=== PATIENT | female | born 1960 | race Caucasian/White ===

== ENCOUNTER 2016-11-17 05:55 | Day surgery (SDC) | payer BC ==
[2016-11-16 10:27] VITALS: BMI 35.6
[~2016-11-17] VITALS: Ht 167.6 cm; Wt 104.0 kg
[~2016-11-17 05:55] MED LIST: INSULIN SC; METFORMIN PO
[2016-11-17] MEDS ORDERED: DICLOFENAC 0.1% 2.5 ML OPH OPER SCH (06:30)
[2016-11-17] MEDS ORDERED: TROPICAMIDE 1% 2 ML OPH OPER SCH (06:30)
[2016-11-17] MEDS ORDERED: CIPROFLOXACIN 0.3% 2.5 ML OPH OPER SCH (06:30)
[2016-11-17] MEDS ORDERED: CYCLOPENTOLATE/PHENYLEPH 2 ML OPH OPER SCH (06:30)
[2016-11-17] MEDS ORDERED: LIDOCAINE 4% (MPF) 5 ML INJ ONE (06:32)
[2016-11-17] MEDS ORDERED: CARBACHOL 0.01% 1.5 ML OPH INJ ONE (06:32)
[2016-11-17] MEDS ORDERED: DEXAMETHASONE 4 MG/ML 1 ML INJ ONE (06:32)
[2016-11-17] MEDS ORDERED: CEFAZOLIN 1 GM INJ ONE (06:32)
[2016-11-17] MEDS ORDERED: GENTAMICIN 80 MG INJ ONE (06:32)
[2016-11-17] MEDS ORDERED: HYALURONATE/CHONDROITIN 1ML OPH INJ ONE (06:32)
[2016-11-17] MEDS ORDERED: EPINEPHrine 1 MG INJ ONE (06:32)
[2016-11-17] MEDS ORDERED: LANT3I SC (07:10)
[2016-11-17] MEDS ORDERED: METF1000 PO (07:10)
[2016-11-17] MEDS ORDERED: INSU100I17 SQ (07:11)
[2016-11-17] MEDS ORDERED: DEXAMETHASONE 4 MG/ML 1 ML INJ INJ ONE (08:22)
[2016-11-17] MEDS ORDERED: CEFAZOLIN 1 GM INJ INJ ONE (08:22)
[2016-11-17] MEDS ORDERED: HYALURONATE/CHONDROITIN 1ML OPH INJ IO ONE (08:22)
[2016-11-17] MEDS ORDERED: CARBACHOL 0.01% 1.5 ML OPH INJ IO ONE (08:22)
[2016-11-17 08:23] VITALS: Ht 167.6 cm; Wt 104.0 kg
[2016-11-17 08:27] VITALS: BP 136/77; PULSE 64; RESP 16
[2016-11-17] MEDS ORDERED: ONDANSETRON 4 MG INJ IV PRN (08:30)
[2016-11-17] MEDS ORDERED: MEPERIDINE 25 MG INJ IV PRN (08:30)
[2016-11-17] MEDS ORDERED: FENTAnyl 50 MCG/ML VIAL IV PRN (08:30)
[2016-11-17] MEDS ORDERED: DIPHENHYDRAMINE 50 MG INJ IV PRN (08:30)
[2016-11-17] MEDS ORDERED: LIDOCAINE 2% (SDV) 5 ML INJ ONE (09:06)
[2016-11-17] MEDS ORDERED: PROPOFOL 20 ML ONE (09:06)
[2016-11-17] MEDS ORDERED: FENTAnyl 50 MCG/ML VIAL ONE (09:08)
--- NOTE | 2016-11-17 09:29 | OPR ---
Date/Time of Note Date/Time of Note DATE: 11/17/16 TIME: 09:24 Operative Report Procedure Date: Nov 17, 2016 Postoperative Diagnosis Cataract right eye Operation Performed Cataract extraction with lens implant right eye Surgeon: CAROLYN PALOMINO MD Anesthesia: MAC Anesthesiologist: JARED SHAH Estimated Blood Loss: none Grafts/Implants Posterior chamber lens implant Complications: None Pt Condition Post Procedure: stable Disposition: other Operative\Procedure Findings The patient was brought to the operating room on an eye gurney positioned appropriately and attached electrocardiogram monitor and given oxygen via nasal cannula attached to pulse oximeter after some intravenous sedation patient received local anesthesia using lidocaine 4% given the lid block and retrobulbar injection the patient was then prepped and draped in the usual sterile sterile manner speculum was inserted inserted between the lids of the right eye to paracentesis incisions were made through clear cornea at the nasal and temporal corneal scleral limbus and then a 3.0 mm keratome was used to enter the anterior chamber through the 12 o'clock position in a stepped corneal corneal incision through this opening and irrigating cystotome was introduced into the anterior chamber and the chamber was filled with disc of the disc and anterior capsulotomy was then performed balanced salt solution was used for hydrodissection of the lens nucleus phacoemulsification of the lens nuclear material was performed and then the epinuclear material ring was aspirated additional lens cortical material was removed by means of irrigation aspiration following this additional disc of this was inserted into the anterior chamber and then a 21.0 dpt posterior chamber intraocular lens (Bausch & Lomb model LI 6 1 AO) was inserted into the posterior chamber with the lens haptics oriented in the horizontal meridian disc of this skin Miostat was then injected into the anterior chamber to constrict the pupil and 1 10-0 nylon suture was placed across the wound. Prior to tying the suture the disc of this was aspirated from the anterior chamber the suture was then tied the ends were cut short and the knot was buried on the corneal side at the end of the procedure was noted that the lens was well centered behind the tubal and appeared stable half a cc of Ancef and half a cc of dexamethasone was then injected into the subcu none space in the inferior conjunctival fornix the speculum was removed ciprofloxacin placed on the circumflex drops placed on the surface of the eye and the eye was patched the patient left the operating room in satisfactory condition CAROLYN PALOMINO MD Nov 17, 2016 09:29
[2016-11-17 09:30] VITALS: BP 115/54; PULSE 64; RESP 19
[2016-11-17 09:35] VITALS: BP 115/58; PULSE 64; RESP 17
[2016-11-17 09:40] VITALS: BP 135/63; PULSE 62; RESP 16
[2016-11-17 09:45] VITALS: BP 119/57; PULSE 68; RESP 28
[2016-11-17 10:41] VITALS: BP 129/61; PULSE 66; RESP 18
--- NOTE | 2016-11-18 08:11 | PREOPHP ---
DATE OF ADMISSION: 11/17/2016 HISTORY OF PRESENT ILLNESS: This 55-year-old patient is admitted for elective cataract surgery of the right eye. The patient has had decreased vision in that eye for the past year without prior history of eye disease or injury. The patient has a 9-year history of insulin-dependent diabetes mellitus. MEDICATIONS: Lantus insulin and metformin. ALLERGIES: NO KNOWN ALLERGIES. PHYSICAL EXAMINATION: The visual acuity best corrected is 20/50 in the right eye and 20/25 in the left eye. Slit lamp examination reveals a posterior subcapsular cataract in the right eye. Applanation tonometry is 10 mmHg in both eyes. Examination of the retina is within normal limits. DIAGNOSIS: Cataract, right eye. PLAN: Cataract extraction with lens implant, right eye. The risks and alternatives to the surgery have been discussed with the patient and the patient has opted to proceed with surgery in the hopes of improving visual acuity, leading to greater ability to perform activities of daily living. Dictated By: Benitez Jane MD /genet/antonino /Document#: [id number]
== END 2016-11-17 10:38 | disposition home or self-care (01) ==
LOC: SDS 05:55
PROVIDERS: ATTEND Ophthalmology
DX: H26.9 Unspecified cataract (principal); E11.9 Type 2 diabetes mellitus without complications; E66.01 Morbid (severe) obesity due to excess calories; Z68.37 Body mass index [BMI] 37.0-37.9, adult
CPT/HCPCS: 66984; 82962; J0171; J0690; J1100; J1580; J3010; V2632; Z7512; Z7610

== ENCOUNTER 2018-05-19 21:57 | Emergency (ER) | payer SELFPAY ==
[~2018-05-19] VITALS: Wt 100.3 kg
[~2018-05-19 21:57] MED LIST changes: +INSU100I17 SQ; -INSULIN SC; +LANT3I SC; +METF100010 PO; -METFORMIN PO
[2018-05-19 22:00] VITALS: BP 172/81; PULSE 92; RESP 20
== END 2018-05-19 22:15 | disposition left against medical advice (07) ==
LOC: FTE 21:57
DX: Z53.21 Procedure and treatment not carried out due to patient leaving prior to being seen by health care provider (principal)